=== PATIENT | male | born 1995 | race Caucasian/White ===

== ENCOUNTER 2018-07-22 15:07 | Emergency (ER) | payer OTHER ==
[~2018-07-22] VITALS: Ht 170.2 cm; Wt 63.5 kg
[~2018-07-22 15:07] MED LIST: CLEOCIN HCL150 MG PO; NOHOMEMEDICATIONS; PREDNISONE 20 M20 MG PO; TESSALON PERLE100 MG PO
[2018-07-22 15:08] VITALS: BP 125/80
[2018-07-22] MEDS ORDERED: CLOTRIMAZOLE 1%15 G1 TOP (15:35)
== END 2018-07-22 15:40 | disposition home or self-care (01) ==
LOC: ER 15:07
DX: B35.4 Tinea corporis (principal); Z87.891 Personal history of nicotine dependence